=== PATIENT | male | born 1935 | race American Indian/Alaskan Native ===

== ENCOUNTER 2019-06-13 06:03 | Inpatient (IN) | payer MEDICARE, OTHER ==
[2019-06-13] MEDS ORDERED: ZOFRAN ONE (06:18)
[2019-06-13] MEDS ORDERED: ASPIRIN PO ONE (06:22)
[2019-06-13] MEDS ORDERED: ZOFRAN IV ONE (06:26)
--- NOTE | 2019-06-13 06:48 | Emergency Department Report ---
- General Stated complaint: POSS CVA Time Seen by Provider: 06/13/19 06:03 Source: patient, family, EMS, old records reviewed (no old record) Mode of arrival: Stretcher Limitations: Altered Mental Status, Physical Limitation - History of Present Illness Initial comments: 83-year-old male with a past medical history of diabetes, hypertension, and prostate cancer status post surgery and currently in remission presents to the hospital with complaints of generalized weakness. Patient was about to take a c ab to the airport. When the cable supervisor arrived patient was too weak to stand and assisted down to the ground by cable supervisor. His daughter reports that patient was diaphoretic with decreased responsiveness. Upon EMS arrival they were concerned for possible stroke and noted that they might have seen facial droop other than that patient was not following commands or answering questions. In route he became somewhat more responsive and his heart rate was noted to be in the 170s. Upon arrival patient is alert and oriented 3 but slow to respond to questions. SVT rate 170s noted on the monitor. He denies chest pain, shortness of breath, nausea, or vomiting. [facility] He does take a baby aspirin daily. He denies previous history of SVT or cardiac disease. In EMS reports Accu-Chek in the 80s - Related Data Allergies Allergy/AdvReac Type Severity Reaction Status Date / Time No Known Allergies Allergy Unverified 06/13/19 08:19 ED Review of Systems ROS: Stated complaint: POSS CVA Other details as noted in HPI Comment: All other systems reviewed and negative ED Physical Exam - Other Other exam information: General: No limitations, patient is alert in no acute distress Head exam: Atraumatic, normocephalic Eyes exam: Normal appearance, pupils equal reactive to light ENT: Moist mucous membrane, normal oropharynx Neck exam: Normal inspection, full range of motion, no meningismus nontender Respiratory exam: Clear to auscultation bilateral, no wheezes, rales, crackles Cardiovascular: tachycardic regular rhythm Abdomen: Soft, nondistended, and nontender, with normal bowel sounds, no rebound, or guarding Extremity: Full range of motion normal inspection no deformity Back: Normal Inspection, full range of motion, no tendernessclear, no facial droop, 4/5 upper and lower extremity strength equal. Sensation intact grossly Psychiatric: normal affect, normal mood Skin: Mildly diaphoretic ED Course Vital Signs 06/13/19 06/13/19 06/13/19 06:09 06:13 06:22 Temperature Pulse Rate 173 H 98 H 98 H Respiratory Rate Blood Pressure 135/110 124/77 122/83 [Left] O2 Sat by Pulse Oximetry 06/13/19 06/13/19 06/13/19 08:03 08:56 09:02 Temperature 98.0 F Pulse Rate 96 H Respiratory 14 17 Rate Blood Pressure 116/79 103/73 [Left] O2 Sat by Pulse 96 99 Oximetry - Reevaluation(s) Reevaluation #1: 06/13/19 06:10 Patient converted from SVT to sinus rhythm after adenosine 6 mg. - Consultations Consultation #1: 06/13/19 07:52 case d/w Dr Mcarthur cardiology, consult ordered ED Medical Decision Making - Lab Data Result diagrams: 06/13/19 06:37 06/13/19 06:37 Lab Results 06/13/19 06/13/19 06/13/19 Range/Units 06:37 06:37 06:37 WBC 6.2 (4.5-11.0) K/mm3 RBC 4.21 (3.65-5.03) M/mm3 Hgb 13.5 (11.8-15.2) gm/dl Hct 39.3 (35.5-45.6) % MCV 93 (84-94) fl MCH 32 (28-32) pg MCHC 34 (32-34) % RDW 12.7 L (13.2-15.2) % Plt Count 178 (140-440) K/mm3 Lymph % (Auto) 25.0 (13.4-35.0) % [place] % (Auto) 12.7 H (0.0-7.3) % Eos % (Auto) 0.3 (0.0-4.3) % Baso % (Auto) 0.5 (0.0-1.8) % Lymph # 1.6 (1.2-5.4) K/mm3 [place] # 0.8 (0.0-0.8) K/mm3 Eos # 0.0 (0.0-0.4) K/mm3 Baso # 0.0 (0.0-0.1) K/mm3 Seg Neutrophils % 61.5 (40.0-70.0) % Seg Neutrophils # 3.8 (1.8-7.7) K/mm3 PT 13.2 (12.2-14.9) Sec. INR 1.03 (0.87-1.13) APTT 24.5 (24.2-36.6) Sec. Sodium 136 L (137-145) mmol/L Potassium 4.4 (3.6-5.0) mmol/L Chloride 95.2 L (98-107) mmol/L Carbon Dioxide 22 (22-30) mmol/L Anion Gap 23 mmol/L BUN 17 (9-20) mg/dL Creatinine 1.5 (0.8-1.5) mg/dL Estimated GFR 54 ml/min BUN/Creatinine Ratio 11 % Glucose 211 H (75-100) mg/dL Calcium 10.0 (8.4-10.2) mg/dL Magnesium 1.90 (1.7-2.3) mg/dL Total Bilirubin 0.50 (0.1-1.2) mg/dL AST 60 H (5-40) units/L ALT 48 (7-56) units/L Alkaline Phosphatase 108 (35-129) units/L Troponin T < 0.010 (0.00-0.029) ng/mL Total Protein 8.7 H (6.3-8.2) g/dL Albumin 4.3 (3.9-5) g/dL Albumin/Globulin Ratio 1.0 % TSH (0.270-4.200) mlU/mL Free T4 (0.76-1.46) ng/dL 06/13/19 Range/Units 06:37 WBC (4.5-11.0) K/mm3 RBC (3.65-5.03) M/mm3 Hgb (11.8-15.2) gm/dl Hct (35.5-45.6) % MCV (84-94) fl MCH (28-32) pg MCHC (32-34) % RDW (13.2-15.2) % Plt Count (140-440) K/mm3 Lymph % (Auto) (13.4-35.0) % [place] % (Auto) (0.0-7.3) % Eos % (Auto) (0.0-4.3) % Baso % (Auto) (0.0-1.8) % Lymph # (1.2-5.4) K/mm3 [place] # (0.0-0.8) K/mm3 Eos # (0.0-0.4) K/mm3 Baso # (0.0-0.1) K/mm3 Seg Neutrophils % (40.0-70.0) % Seg Neutrophils # (1.8-7.7) K/mm3 PT (12.2-14.9) Sec. INR (0.87-1.13) APTT (24.2-36.6) Sec. Sodium (137-145) mmol/L Potassium (3.6-5.0) mmol/L Chloride (98-107) mmol/L Carbon Dioxide (22-30) mmol/L Anion Gap mmol/L BUN (9-20) mg/dL Creatinine (0.8-1.5) mg/dL Estimated GFR ml/min BUN/Creatinine Ratio % Glucose (75-100) mg/dL Calcium (8.4-10.2) mg/dL Magnesium (1.7-2.3) mg/dL Total Bilirubin (0.1-1.2) mg/dL AST (5-40) units/L ALT (7-56) units/L Alkaline Phosphatase (35-129) units/L Troponin T (0.00-0.029) ng/mL Total Protein (6.3-8.2) g/dL Albumin (3.9-5) g/dL Albumin/Globulin Ratio % TSH 4.820 H (0.270-4.200) mlU/mL Free T4 1.24 (0.76-1.46) ng/dL - EKG Data -: EKG Interpreted by Me (svt) EKG shows normal: axis (qrs -8 ), QRS complexes (qrs-8), ST-T waves (diifuse depression) Rate: tachycardia (172) - EKG Data 06/13/19 07:18 repeat ekg at 6:14am after adenosine nsr, rate 97, pvc's, no stemi or t inv - Radiology Data Radiology results: report reviewed CHEST 1 VIEW 0707 INDICATION / CLINICAL INFORMATION: palpitations, weakness, svt. COMPARISON: None available. FINDINGS: SUPPORT DEVICES: None HEART / MEDIASTINUM: No significant abnormality. LUNGS / PLEURA: Mild elevation of the left hemidiaphragm is seen of unknown chronicity. Lung bautista appear clear of infiltrates. Pulmonary vascularity appears within normal limits. No pneumothorax. ADDITIONAL FINDINGS: No significant additional findings. IMPRESSION: No significant acute abnormality - Medical Decision Making Patient presented with SVT heart rate in the 170s. He converted after adenosine 6 mg IV. After conversion his EKG shows sinus rhythm he was more alert with increased strength. Labs reviewed. No signs of ST elevation HI. Initial troponin negative with repeat pending. Case discussed with electroplater helper Dr. Mcarthur and patient will be admitted for further cardiac monitoring. - Differential Diagnosis SVT, electrolyte abnormality, arrhythmia, HI Critical Care Time: No Critical care attestation.: If time is entered above; I have spent that time in minutes in the direct care of this critically ill patient, excluding procedure time. ED Disposition Clinical Impression: SVT (supraventricular tachycardia), Generalized weakness, Diabetes, HTN (hypertension), History of prostate cancer Disposition: 09 OP ADMIT IP TO THIS HOSP Is pt being admited?: Yes Condition: Stable Time of Disposition: 08:28 (Dr Chandra/hosp)
[2019-06-13 06:49] LABS: Basophils % (Auto) 0.5 % (0.0-1.8); Eosinophils % (Auto) 0.3 % (0.0-4.3); Hematocrit 39.3 % (35.5-45.6); Hemoglobin 13.5 gm/dl (11.8-15.2); Lymphocytes # (Auto) 1.6 K/mm3 (1.2-5.4); Mean Corpuscular HGB Conc 34 % (32-34); Mean Corpuscular Volume 93 fl (84-94); Monocytes # (Auto) 0.8 K/mm3 (0.0-0.8); Monocytes % (Auto) 12.7 % (0.0-7.3); Platelet Count 178 K/mm3 (140-440); Red Blood Count 4.21 M/mm3 (3.65-5.03); Red Cell Distribution Width 12.7 % (13.2-15.2)
[2019-06-13 06:59] LABS: INR 1.03 (0.87-1.13)
[2019-06-13 07:00] LABS: Partial Thromboplastin Time 24.5 Sec. (24.2-36.6)
[2019-06-13 07:15] LABS: Alanine Aminotransferase 48 units/L (7-56); Albumin 4.3 g/dL (3.9-5); BUN/Creatinine Ratio 11; Blood Urea Nitrogen 17 mg/dL (9-20); Hemolysis Index 6
[2019-06-13 07:23] LABS: Free T4 (Free Thyroxine) 1.24 ng/dL (0.76-1.46)
--- NOTE | 2019-06-13 07:33 | XRay Report ---
CHEST 1 VIEW 0707 INDICATION / CLINICAL INFORMATION: palpitations, weakness, svt. COMPARISON: None available. FINDINGS: SUPPORT DEVICES: None HEART / MEDIASTINUM: No significant abnormality. LUNGS / PLEURA: Mild elevation of the left hemidiaphragm is seen of unknown chronicity. Lung bautista a ppear clear of infiltrates. Pulmonary vascularity appears within normal limits. No pneumothorax. ADDITIONAL FINDINGS: No significant additional findings. IMPRESSION: No significant acute abnormality Signer Name: Jose Cordova MD Signed: 06/13/2019 7:28 AM Workstation Name: [id number]
--- NOTE | 2019-06-13 10:34 | History and Physical Report ---
History of Present Illness Date of examination: 06/13/19 Date of admission: 06/13/19 08:41 History of present illness: 83-year-old male with a past medical history of diabetes, hypertension, and prostate cancer status post surgery and currently in remission presents to the hospital with complaints of generalized weakness. Patient was about to take a cab to the airport. When the network cable installer arrived patient was too weak to stand and assisted down to the ground by network cable installer. His daughter reports that patient was diaphoretic with decreased responsiveness. Upon EMS arrival they were concerned for possible stroke and noted that they might have seen facial droop other than that patient was not following commands or answering questions. In route he became somewhat more responsive and his heart rate was noted to be in the 170s. Upon arrival patient is alert and oriented 3 but slow to respond to questions. SVT rate 170s noted on the monitor. He denies chest pain, shortness of breath, nausea, or vomiting. Patient's physicians are affiliated with the [facility]. He does take a baby aspirin daily. He denies previous history of SVT or cardiac disease. In EMS reports Accu-Chek in the 80s. He converted to NSR after giving 6mg of adenosine. Cardiology consulted in the ER. Patient admi tted for furtehr evaluation and management. Past History Past Medical History: diabetes, hypertension, hyperlipidemia, other (prostate cancer on remission) Past Surgical History: Other (prostate surgery) Social history: denies: smoking, alcohol abuse, prescription drug abuse, IV drug use Family history: cancer (sister) Medications and Allergies Allergies Allergy/AdvReac Type Severity Reaction Status Date / Time No Known Allergies Allergy Unverified 06/13/19 08:19 Home Medications Medication Instructions Recorded Confirmed Last Taken Type Aspirin EC 81 mg PO QDAY #30 tablet 06/14/19 Unknown Rx AtorvaSTATin [Lipitor] 40 mg PO QHS #30 tablet 06/14/19 Unknown Rx Metoprolol [Lopressor TAB] 50 mg PO Q12HR #60 tablet 06/14/19 Unknown Rx Exam - Constitutional Vitals: Temp Pulse Resp BP Pulse Ox 98.0 F 96 H 17 103/73 99 06/13/19 08:56 06/13/19 08:03 06/13/19 09:02 06/13/19 09:02 06/13/19 09:02 Results - Labs CBC & Chem 7: 06/13/19 06:37 06/13/19 06:37 Labs: Abnormal lab results 06/13/19 06/13/19 06/13/19 Range/Units 06:37 06:37 06:37 RDW 12.7 L (13.2-15.2) % [place] % (Auto) 12.7 H (0.0-7.3) % Sodium 136 L (137-145) mmol/L Chloride 95.2 L (98-107) mmol/L Glucose 211 H (75-100) mg/dL AST 60 H (5-40) units/L Total Protein 8.7 H (6.3-8.2) g/dL TSH 4.820 H (0.270-4.200) mlU/mL Assessment and Plan SVT, converted to NSR HTN DM type 2 h/o Prostate cancer on remission
[2019-06-13] MEDS: HALFPRIN EC PO SCH (11:43)
--- NOTE | 2019-06-13 13:09 | Consultation ---
History of Present Illness Consult date: 06/13/19 Consult reason: arrhythmia History of present illness: This is an 83-year old who was brought to the emergency department, found to have narrow complex tachycardia, rate at 172, consistent with SVT. Patient did revert to sinus rhythm following intravenous adenosine. He has remained in a stable sinus rhythm and feels better. TSH of 4.8. A repeat 12 lead ECG shows no acute ischemic changes. Patient denies a prior cardiac history and has no prior history of tachyarrhythmias. Patient denies chest pain, unusual shortness of breath and palpitations. A cardiac consultation has been requested for further evaluation and management of SVT. Medications and Allergies Allergies Allergy/AdvReac Type Severity Reaction Status Date / Time No Known Allergies Allergy Unverified 06/13/19 08:19 Active Meds: Active Medications Aspirin (Halfprin Ec) 81 mg PO QDAY [facility] Last Admin: 06/13/19 11:43 Dose: 81 mg Documented by: Atorvastatin Calcium (Lipitor) 40 mg PO QHS REJI Enoxaparin Sodium (Lovenox) 40 mg SUB-Q QDAY@2200 [facility] Physical Examination Vital Signs Pulse BP 173 H 135/110 06/13/19 06:09 06/13/19 06:09 General appearance: no acute distress HEENT: Positive: PERRL Neck: Positive: trachea midline Cardiac: Positive: Reg Rate and Rhythm Lungs: Positive: Decreased Breath Sounds Neuro: Positive: Grossly Intact Extremities: Absent: edema Results 06/13/19 06:37 06/13/19 06:37 Cardiac Enzymes 06/13/19 Range/Units 06:37 AST 60 H (5-40) units/L Coagulation 06/13/19 Range/Units 06:37 PT 13.2 (12.2-14.9) Sec. INR 1.03 (0.87-1.13) APTT 24.5 (24.2-36.6) Sec. CBC 06/13/19 Range/Units 06:37 WBC 6.2 (4.5-11.0) K/mm3 RBC 4.21 (3.65-5.03) M/mm3 Hgb 13.5 (11.8-15.2) gm/dl Hct 39.3 (35.5-45.6) % Plt Count 178 (140-440) K/mm3 Lymph # 1.6 (1.2-5.4) K/mm3 [place] # 0.8 (0.0-0.8) K/mm3 Eos # 0.0 (0.0-0.4) K/mm3 Baso # 0.0 (0.0-0.1) K/mm3 Comprehensive Metabolic Panel 06/13/19 Range/Units 06:37 Sodium 136 L (137-145) mmol/L Potassium 4.4 (3.6-5.0) mmol/L Chloride 95.2 L (98-107) mmol/L Carbon Dioxide 22 (22-30) mmol/L BUN 17 (9-20) mg/dL Creatinine 1.5 (0.8-1.5) mg/dL Glucose 211 H (75-100) mg/dL Calcium 10.0 (8.4-10.2) mg/dL AST 60 H (5-40) units/L ALT 48 (7-56) units/L Alkaline Phosphatase 108 (35-129) units/L Total Protein 8.7 H (6.3-8.2) g/dL Albumin 4.3 (3.9-5) g/dL Assessment and Plan SVT, reverted to sinus rhythm following IV adenosine TSH of 4.8 Hypertension Diabetes Hyperlipidemia Recommendations: Beta blockers for suppression of paroxysmal SVT. Echocardiogram for LVEF assessment. Pre-discharge persantine thallium stress test.
[2019-06-13] MEDS ORDERED: LOVENOX SUB-Q SCH (22:00)
[2019-06-14] MEDS: LOPRESSOR PO SCH ×4 (00:20→17:44)
[2019-06-14] MEDS ORDERED: LEXISCAN IV ONE (07:52)
[2019-06-14] MEDS: HALFPRIN EC PO SCH (09:15)
[2019-06-14 12:22] VITALS: BP 132/109
--- NOTE | 2019-06-14 14:26 | Discharge Summary ---
Providers - Providers Date of Admission: 06/13/19 08:41 Date of discharge: 06/14/19 Attending physician: EVAN CHANG 06/13/19 07:52 Consult to Physician [CONS] Urgent Comment: Consulting Provider: TERRENCE REYES Physician Instructions: Reason For Exam: new onset svt Primary care physician: MANAGER [employer] Hospitalization Condition: Stable Hospital course: Discharge Diagnosis; SVT, converted to NSR HTN DM type 2 h/o Prostate cancer on remission Disposition: DC-01 TO HOME OR SELFCARE Time spent for discharge: 34 minutes Core Measure Documentation - Palliative Care Palliative Care/ Comfort Measures: Not Applicable - Core Measures Any of the following diagnoses?: none Exam - Constitutional Vitals: Temp Pulse Resp BP Pulse Ox 98.5 F 71 18 132/109 96 06/14/19 12:19 06/14/19 12:21 06/14/19 12:19 06/14/19 12:21 06/14/19 10:31 Plan Activity: advance as tolerated Weight Bearing Status: Non-Weight Bearing Diet: low fat, low salt Prescriptions: AtorvaSTATin [Lipitor] 40 mg PO QHS #30 tablet Aspirin EC 81 mg PO QDAY #30 tablet Metoprolol [Lopressor TAB] 50 mg PO Q12HR #60 tablet
--- NOTE | 2019-06-14 14:33 | Event Note ---
Date: 06/14/19 Patient underwent Lexiscan thallium stress test today, results show evidence of diaphragmatic attenuation artifact, otherwise normal perfusion study, negative study. Left ventricular ejection fraction 60% by gated SPECT analysis.
--- NOTE | 2019-06-15 00:38 | Treadmill Report ---
THALLIUM STRESS TEST LEFT VENTRICLE: Left ventricular chamber size is within normal spread. Perfusion study demonstrates a small fixed basal inferior defect of mild intensity. Gated analysis demonstrates normal left ventricular systolic function, ejection fraction 60%. CONCLUSION: Small fixed basal inferior defect of mild intensity, consistent with diaphragmatic attenuation artifact. There is no reversible ischemia demonstrated on this study. Negative study. Clinical correlation recommended. JOB# [id number] CA/NTS
== END 2019-06-14 18:00 | disposition home or self-care (01) | DRG 310 ==
LOC: ED 06:03 → 4A 08:41
PROVIDERS: ADMIT Internal Medicine; ATTEND Internal Medicine
DX: I47.1 Supraventricular tachycardia (principal); E11.9 Type 2 diabetes mellitus without complications; I10 Essential (primary) hypertension; E78.5 Hyperlipidemia, unspecified; Z85.46 Personal history of malignant neoplasm of prostate; Z80.9 Family history of malignant neoplasm, unspecified; Z79.82 Long term (current) use of aspirin; Z79.899 Other long term (current) drug therapy; Z79.84 Long term (current) use of oral hypoglycemic drugs
CPT/HCPCS: 36415; 71045; 78452; 80053; 82962; 83735; 84439; 84443; 84484; 85025; 85610; 85730; 93005; 93010; 93017; 93306; 96374; 96375; G0378; A9270-GY; A9502; J0153; J1650; J2405; J2785